=== PATIENT | male | born 1980 | race Caucasian/White ===

== ENCOUNTER → 2019-06-23 | Outpatient (CLI) | payer BC, OTHER | LOC: RAD 09:54 | DX: M43.8X4 Other specified deforming dorsopathies, thoracic region (principal) ==

== ENCOUNTER → 2020-01-20 | Outpatient (CLI) | payer BC, OTHER | LOC: SJCVCIMAG 12-11 15:50 | DX: I07.1 Rheumatic tricuspid insufficiency (principal); R94.31 Abnormal electrocardiogram [ECG] [EKG]; R00.1 Bradycardia, unspecified; I42.9 Cardiomyopathy, unspecified; I42.1 Obstructive hypertrophic cardiomyopathy ==